=== PATIENT | male | born 2000 | race Caucasian/White ===

== ENCOUNTER 2022-09-01 20:26 | Emergency (ER) | payer OTHER ==
[~2022-09-01] VITALS: Ht 177.8 cm; Wt 74.1 kg
[2022-09-01] MEDS ORDERED: predniSONE 20 MG TAB PO ONE (22:55)
[2022-09-01] MEDS ORDERED: AUGMENTIN 875 MG TAB PO ONE (22:55)
[2022-09-01] MEDS ORDERED: PRED20TA PO (23:04)
[2022-09-01] MEDS ORDERED: AMOX875T2 PO (23:04)
[2022-09-01] MEDS ORDERED: FLON27.5 NARES (23:04)
[2022-09-01 23:19] VITALS: BP 118/67
== END 2022-09-01 23:37 | disposition home or self-care (01) ==
LOC: M ED 20:26
DX: J01.90 Acute sinusitis, unspecified (principal); F17.290 Nicotine dependence, other tobacco product, uncomplicated
CPT/HCPCS: 87486; 87581; 87633; 87798; 99283; J7512